=== PATIENT | male | born 1990 | race Caucasian/White ===

== ENCOUNTER 2021-04-11 20:52 | Emergency (ER) | payer SELFPAY ==
--- NOTE | ~2021-04-11 | CT_ITS ---
EXAMINATION: CT abdomen pelvis w con DATE: 04/11/2021 22:27 INDICATION: Abdominal pain TECHNIQUE: Computed tomography (CT) of the abdomen and pelvis was performed with 100 mL Omnipaque-350 intravenous contrast. Automated exposure control and iterative reconstruction technique were employe d. The dose-length product was 759.81 mGy-cm. COMPARISON: None FINDINGS: Lung bases are clear. Heart size is normal. No pericardial or pleural effusion. Liver, gallbladder, s pleen, pancreas, bilateral adrenal glands and kidneys are normal. Bowels including the appendix are n ormal. Bladder is normal. No free intraperitoneal gas or fluid. No pathologically enlarged abdominal or pelvic lymphadenopathy. Mild spondylosis at the lumbosacral junction. Mild bilateral hip osteoarth ritis. Bone islands at the bilateral femoral necks. IMPRESSION: 1. No acute intra-abdominal/pelvic process. Reviewed, dictated and finalized at location A.
[2021-04-11 21:02] VITALS: BP 140/88; PULSE 88; RESP 24; TEMP 36.3; O2SAT 96
--- NOTE | 2021-04-11 21:03 | ECG_ITS ---
Measurements Intervals [place] Rate: 104 P: 74 IA: 140 QRS: 78 QRSD: 88 T: 49 QT: 313 QTc: 413 Interpretive Statements SINUS TACHYCARDIA DELAYED PRECORDIAL R/S TRANSITION BASELINE ARTIFACT- I, II, III, AVR, AVL, AVF BORDERLINE ECG Electronically Signed On 04-11-2021 21:13:32 CDT by Alexandre Bruno D.O.
--- NOTE | 2021-04-11 21:05 | PC.NURSE ---
states takes PRN dilantin if he thinks he is going to have a seizre
[2021-04-11 21:20] LABS: Basophils Absolute Auto 0.04 K/mm3 (0.00-0.10); Basophils Percent Auto 0.3 % (0.0-1.0); Eosinophils Absolute Auto 0.01 K/mm3 (0.02-0.50); Eosinophils Percent Auto 0.1 % (1.0-6.0); Immature Granulocyte Absolute 0.06 K/mm3 (0.00-0.00); Immature Granulocyte Percent A 0.4 % (0.0-0.0); Lymphocytes Absolute Auto 2.96 K/mm3 (1.10-4.50); Lymphocytes Percent Auto 21.6 % (18.0-42.0); Mean Corpuscular HGB Conc 35.3 g/dL (32.0-36.0); Mean Corpuscular Hemoglobin 29.8 pg (27.0-31.0); Mean Corpuscular Volume 84.4 fL (78.0-102.0); Mean Platelet Volume 10.3 fl (8.7-11.0); Monocytes Percent Auto 6.6 % (2.0-11.0); Neutrophils Absolute Auto 9.8 K/mm3 (1.7-7.2); Platelet Count Result 290 K/mm3 (150-420); Red Blood Count 6.04 M/mm3 (4.70-6.10); White Blood Count 13.7 K/mm3 (4.8-10.8)
[2021-04-11] MEDS: SODIUM CHLORIDE 0.9% IV 1,000 ML 999 ML IV CONT (21:20)
[2021-04-11] MEDS: ONDANSETRON INJ 4 MG/2 ML VIAL IV PUSH (21:20)
[2021-04-11] MEDS: LORazepam INJ (*CRX) 2 MG/ML VIAL 1 MG IV PUSH (21:20)
[2021-04-11 21:31] VITALS: BP 140/87; PULSE 88; RESP 18; O2SAT 95
[2021-04-11 21:37] LABS: Lactic Acid Reflex 2.1 mmol/L (0.4-2.0)
--- NOTE | 2021-04-11 21:52 | PC.NURSE ---
pt & significant other in bed together, kissing & petting.
[2021-04-11 21:54] LABS: Acetaminophen < 2 ug/mL (10-30); Alanine Aminotransferase 38 U/L (16-63); Albumin Level 5.3 g/dL (3.4-5.0); Alkaline Phosphatase 126 U/L (46-116); Anion Gap 17 mmol/L (8-16); Aspartate Amino Transferase 30 U/L (15-37); Blood Urea Nitrogen 16 mg/dL (7-18); Calcium 10.3 mg/dL (8.5-10.1); Carbon Dioxide 25 mmol/L (21-32); Chloride 96 mmol/L (98-108); Estimated CRCL calculation 54 ml/min; Estimated Glomerular Filt Rate 46; Ethanol < 3 mg/dL (0-6); Glucose 107 mg/dL (70-99); Osmolality Calculated 287 mOsm/kg (285-295); Salicylate 4.7 mg/dL (2.8-20.0); Sodium 138 mmol/L (136-145); Thyroid Stimulating Hormone 1.72 uIU/mL (0.36-3.74); Total Protein 9.3 g/dL (6.4-8.2)
[2021-04-11 21:55] LABS: Lipase 60 U/L (73-393)
--- NOTE | 2021-04-11 22:08 | PC.NURSE ---
patient cont to state can not void
--- NOTE | 2021-04-11 22:18 | PC.NURSE ---
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
--- NOTE | 2021-04-11 22:39 | ED.ANXIETY ---
HPI - Anxiety General Chief Complaint: Anxiety Stated Complaint: throwing up, stomach pain, dizzy Source: patient and family Mode of arrival: ambulatory Limitations: no limitations History of Present Illness HPI narrative: this is a 30-year-old male that uses synthetic cannabis presents with anxiety with nausea vomiting and crampy abdominal pain. Currently there is no fever chills no shortness of breath her abdominal pain is diffuse with some nausea vomiting with no diarrhea constipation no flank pain no dysuria. Currently no fever chills no shortness of breath no chest pain. Patient has a history of anxiety disorder. complaint: anxiety Onset (ago): hour(s) Symptoms: other ( abdominal pain with nausea and vomiting) Severity: moderate Quality: intermittent Place: home Provoking factors: emotional stress and other ( cannabis use) Relieving factors: nothing Exacerbating factors: nothing Associated symptoms: nausea/vomiting Related Data Allergies Allergy/AdvReac Type Severity Reaction Status Date / Time No Known Allergies Allergy Verified 04/11/21 21:00 Review of Systems Review of Systems: All systems reviewed & are unremarkable except as noted in HPI and below PMFSH Past Medical History Medical History Anxiety Social History Social History Gender identity (if verbalized by the patient): Male Exam Const: General: no acute distress and alert Orientation/consciousness: patient oriented x3 HENMT: Head: normal to inspection Eyes: Conjunctivae: conjunctivae normal Pupils: Equal, round and reactive pupils present Neck: Neck: normal visual inspection, no lymphadenopathy and no meningeal signs Chest: Chest palpation & inspection: normal inspection of the chest Resp: Effort & Inspection: normal respiratory effort Cardio: Rate: regular rate and tachycardic GI: GI Palp: Yes Soft to palpation and Yes Tenderness to palpation present (GI) : Male General Exam: Yes normal external exam Urinary Catheter: Urinary Catheter: patent and draining Skin: General skin exam: normal color Rashes: no rashes Course Course Emergency Course: patient received Ativan, Zofran and IV fluids is feeling much better reviewed labs and CT scan with patient and family. Vital Signs Vital signs: Vital Signs Temperature 36.3 C L 04/11/21 21:02 Pulse Rate 88 04/11/21 21:02 Respiratory Rate 24 H 06/07/21 21:02 Blood Pressure 140/88 04/11/21 21:02 Pulse Oximetry 96 04/11/21 21:02 Temperature 36.3 C L 04/11/21 21:02 Pulse Rate 88 04/11/21 21:31 Respiratory Rate 18 04/11/21 21:31 Blood Pressure 140/87 04/11/21 21:31 Pulse Oximetry 95 04/11/21 21:31 MDM - Anxiety Lab Data Result diagrams: 04/11/21 21:15 04/11/21 21:15 Labs: Lab Results 04/11/21 04/11/21 04/11/21 Range/Units 21:15 21:15 21:15 WBC 13.7 H (4.8-10.8) K/mm3 RBC 6.04 (4.70-6.10) M/mm3 Hgb 18.0 (14.0-18.0) g/dL Hct 51.0 (40.0-54.0) % MCV 84.4 (78.0-102.0) fL MCH 29.8 (27.0-31.0) pg MCHC 35.3 (32.0-36.0) g/dL RDW 12.0 (11.6-14.4) % Plt Count 290 (150-420) K/mm3 MPV 10.3 (8.7-11.0) fl Immature Gran % (Auto) 0.4 H (0.0-0.0) % Neut % (Auto) 71.0 H (50.0-70.0) % Lymph % (Auto) 21.6 (18.0-42.0) % [place] % (Auto) 6.6 (2.0-11.0) % Eos % (Auto) 0.1 L (1.0-6.0) % Baso % (Auto) 0.3 (0.0-1.0) % Lymph # (Auto) 2.96 (1.10-4.50) K/mm3 [place] # (Auto) 0.90 (0.10-0.90) K/mm3 Eos # (Auto) 0.01 L (0.02-0.50) K/mm3 Baso # (Auto) 0.04 (0.00-0.10) K/mm3 Abs Immat Gran (auto) 0.06 H (0.00-0.00) K/mm3 Absolute Neuts (auto) 9.8 H (1.7-7.2) K/mm3 Absolute Nucleated RBC 0.00 (0.00-0.00) K/mm3 Nucleated RBC % 0.0 (0-0.0) % Sodium 138 (136-145) mmol/L Potassium 4.0 (3.5-5.1) mmol/L Chlor
[2021-04-11 22:48] LABS: Bilirubin Urine 2+ (Negative); Glucose Urine UA Negative (Negative); Ketones Urine 2+ (Negative); Leukocyte Esterase Ur Negative (Negative); Nitrate Urine Negative (Negative); Protein Urine 3+ (Negative); Specific Grav Ur 1.025 (1.010-1.020)
[2021-04-11 22:56] LABS: Amphetamine Screen Urine Positive (Negative); Barbiturate Screen Urine Negative (Negative); Benzodiazepines Screen Urine Negative (Negative); Cannabinoid Screen Urine Positive (Negative); Cocaine Screen Urine Negative (Negative); Methadone Screen Urine Negative (Negative); Opiate Screen Urine Negative (Negative); Phencyclidine Screen Urine Positive (Negative)
[2021-04-11 22:57] LABS: Add Urine Microscopic? YES; Appearance Urine Cloudy (Clear); Blood Urine Trace-Lysed (Negative); Color Urine Dark Amber (Yellow); RBC Urine 0-2 /hpf (0-2); WBC Urine 0-3 /hpf (0-3)
[2021-04-11 22:58] LABS: Bacteria Urine 3+ /hpf; Hyaline Casts Urine 50+ /lpf; Mucus Urine Heavy /lpf; Squamous Epithelial Cell Urine None seen /hpf (Few)
[2021-04-11 23:14] VITALS: RESP 18; TEMP 37.1; O2SAT 97
[2021-04-11 23:27] VITALS: BP 148/75; PULSE 81; RESP 20; O2SAT 97
== END 2021-04-11 23:27 | disposition home or self-care (01) ==
PROVIDERS: Emergency Provider Emergency Medicine
DX: F41.9 Anxiety disorder, unspecified (principal); R11.10 Vomiting, unspecified
CPT/HCPCS: 36415; 74177; 80053; 80307; 81001; 83605; 83690; 84443; 85025; 93005; 96361; 96374; 96375; 99283; 99284; J2060; J2405; J7030; Q9967